=== PATIENT | female | born 1995 | race Caucasian/White ===

== ENCOUNTER 2018-01-03 13:34 | Emergency (ER) | payer MEDICAID ==
[~2018-01-03] VITALS: Ht 167.6 cm; Wt 98.0 kg
[2018-01-03 13:42] VITALS: Ht 167.6 cm; Wt 98.0 kg
[2018-01-03 15:55] LABS: BASOPHIL % 0.3 % (0-2); PLATELET COUNT 310 x10^3mcL (130-400); RED CELL DISTRIBUTION WIDTH 12.6 % (11.5-14.5)
[2018-01-03 16:07] LABS: CALCIUM 8.5 mg/dL (8.5-10.1); CARBON DIOXIDE 27.2 mmol/L (21-32); CHLORIDE SERUM 105 mmol/L (98-107); CREATININE SERUM 0.5 mg/dL (0.6-1.0); GFR1 > 60 mL/min; GLUCOSE SERUM 84 mg/dL (74-106); POTASSIUM SERUM 3.4 mmol/L (3.5-5.1); SODIUM SERUM 140 mmol/L (136-145)
[2018-01-03 16:10] LABS: UA SPECIFIC GRAVITY 1.015 (1.005-1.035); microscopic required? YES; urine erythrocyte TRACE (NEGATIVE)
[2018-01-03 16:13] LABS: ALBUMIN 2.8 g/dL (3.4-5.0); ALKALINE PHOSPHATASE 53 U/L (46-116); ALT/SGPT 10 U/L (14-59); AMYLASE 40 U/L (25-115); AST/SGOT 10 U/L (15-37); BILIRUBIN TOTAL 0.3 mg/dL (0.20-1.00); LIPASE 71 IU/L (73-393); TOTAL PROTEIN, SERUM 6.9 g/dL (6.4-8.2)
[2018-01-03 17:08] VITALS: BP 110/55
== END 2018-01-03 17:08 | disposition home or self-care (01) ==
LOC: ED 13:34
PROVIDERS: Emergency Medicine
DX: O26.892 Other specified pregnancy related conditions, second trimester (principal); M54.5 Low back pain; R10.2 Pelvic and perineal pain; R51 Headache; J45.909 Unspecified asthma, uncomplicated; Z3A.18 18 weeks gestation of pregnancy
CPT/HCPCS: J3411; J3490; J7030; Q0092

== ENCOUNTER 2018-01-25 04:27 | Emergency (ER) | payer OTHER ==
[~2018-01-25] VITALS: Ht 167.6 cm; Wt 98.4 kg
[2018-01-25 04:36] VITALS: Ht 167.6 cm; Wt 98.4 kg
[2018-01-25 06:33] VITALS: BP 138/85
== END 2018-01-25 06:33 | disposition left against medical advice (07) ==
LOC: ED 04:27
DX: O26.892 Other specified pregnancy related conditions, second trimester (principal); R10.9 Unspecified abdominal pain; R51 Headache; E66.01 Morbid (severe) obesity due to excess calories; J45.909 Unspecified asthma, uncomplicated; Z3A.21 21 weeks gestation of pregnancy; Z88.6 Allergy status to analgesic agent